=== PATIENT | female | born 1965 | race American Indian/Alaskan Native ===

== ENCOUNTER 2016-08-15 06:56 | Outpatient (CLI) | payer OTHER | END 2016-08-15 06:57 | disposition home or self-care (01) | LOC: VAS 06:56 | PROVIDERS: ATTEND Podiatrist Foot & Ankle Surgery | DX: M79.662 Pain in left lower leg (principal) ==

== ENCOUNTER 2018-12-17 12:56 | Outpatient (CLI) | payer BC ==
--- NOTE | 2018-12-20 10:09 | Mammography Report ---
BILATERAL DIGITAL SCREENING MAMMOGRAM WITH CAD INDICATION: Routine screening mammography. TECHNIQUE: Digital bilateral 2D mammography was obtained in the craniocaudal and mediolateral obliq ue projections. This examination was interpreted with the benefit of Computer-Aided Detection analysi s. COMPARISON: 10/25/2015 FINDINGS: Breast Density: There are scattered areas of fibroglandular density. No mass, architectural distortion or suspicious calcifications. A left retroareolar asymmetry is unch anged compared to the prior exam. IMPRESSION:No mammographic evidence of malignancy. BI-RADS Category 2: Benign. No mammographic evidence of malignancy. Recommend routine screening ma mmography in one year. A "normal" or negative report should not discourage follow up or biopsy of a clinically significant f inding. A written summary of these findings will be mailed to the patient. The patient will be entered into a mammography reporting system which will generate a reminder letter for the patient's next appointmen t at the appropriate interval. The [employer] recommends yearly mammograms starting at age 40 and continuing as l ángel as a woman is in good health. Breast MRI is recommended for women with an approximate 20-25% or greater lifetime risk of breast cancer, including women with a strong family history of breast or ova babar cancer or who have been treated for Hodgkin's disease. Signer Name: Roosevelt Aguilar MD Signed: 12/20/2018 10:04 AM Workstation Name: [id number]
== END 2018-12-17 12:57 | disposition home or self-care (01) ==
LOC: MAMMO 12:56
PROVIDERS: ATTEND Internal Medicine
DX: Z12.31 Encounter for screening mammogram for malignant neoplasm of breast (principal); I10 Essential (primary) hypertension; Z90.710 Acquired absence of both cervix and uterus
CPT/HCPCS: 77067